=== PATIENT | female | born 1985 | race Two or more races ===

== ENCOUNTER → 2019-09-19 | Outpatient (CLI) | payer MEDICAID ==
--- NOTE | 2019-09-19 12:23 | WOMENS IMAGING REPORT ---
EXAM DESCRIPTION: U/S BREAST UNILAT LIMITED IMAGES COMPLETED DATE/TIME: 09/19/2019 12:14 pm REASON FOR STUDY: N64.89 OTHER SPECIFIED DISORDERS OF BREAST N64.89 OTHER SPECIFIED DISORDERS OF BR EAST COMPARISON: None. TECHNIQUE: Real-time and static grayscale imaging performed of the right breast targeted to the area of clinical/mammographic concern, 3-6 o'clock location. Selected color Doppler images recorded. LIMITATIONS: None. FINDINGS: MASS: No mass identified. Normal glandular tissue. OTHER: No other significant finding. IMPRESSION: No suspicious findings detected by ultrasound. BIRAD: 1 Negative. RECOMMENDATION: RECOMMENDED FOLLOW-UP: Follow-up as clinically indicated. COMMENT: The [employer] (ACR) has developed recommendations for screening MRI of the breasts in certain patient populations, to be used in conjunction with mammography. Breast MRI s urveillance may be appropriate for women with more than 20% lifetime risk of developing breast cancer as determined by genetic testing, significant family history of the disease, or history of mantle r adiation for Hodgkins Disease. ACR Practice Guidelines 2008. TECHNICAL DOCUMENTATION: JOB ID: [id number] 2010 [employer]- All Rights Reserved Reading location - IP/workstation name: [email or web address]
== END ==
LOC: WI 11:14
PROVIDERS: ATTEND Midwife
DX: N64.89 Other specified disorders of breast (principal)
CPT/HCPCS: 76642

== ENCOUNTER 2019-11-16 05:13 | Inpatient (IN) | payer MEDICAID ==
[2019-11-16] MEDS ORDERED: OXYTOCIN 10 UNIT/ML VIAL ONE (05:39)
[2019-11-16] MEDS ORDERED: MISOPROSTOL 0.2 MG TABLET ONE (05:39)
[2019-11-16] MEDS ORDERED: LIDOCAINE 1% INJ-PF (10 MG/ML) 30 ML SDV ONE (05:39)
[2019-11-16] MEDS ORDERED: OXYTOCIN/0.9 % SODIUM CHLORIDE 30 UNIT/500 ML RTUINJ ONE (05:40)
--- NOTE | 2019-11-16 05:51 | Admission Physical ---
Datetime Report Generated by CPN: 11/16/2019 05:51 CURRENT ADMISSION Chief Complaint: Uterine Contractions Admit Impression : Active Labor Admit Plan: Admit to Unit; Initiate Labor Protocol ALLERGIES Medication Allergies: No Known Allergies (11/16/2019) OBSTETRICAL HISTORY EDC: 11/19/2019 00:00 : 9 Para: 8 Livin PHYSICAL EXAM General: Normal HEENT: Normal Neurologic: Normal Thyroid: Normal Heart: Normal Lungs: Normal Breast: Normal Back: Normal Abdomen: Normal Genitourinary Exam: Normal Extremities: Normal DTRs: Normal Pelvic Type: Adequate Vital Signs: Reviewed; Within Normal Limits VAGINAL EXAM Dilatation: 10 Effacement: 100 Station: 2 Contraction Comments: Regular FETUS A EGA: 39.4 Monitoring: External US Presentation: Vertex Admit Comment: @ 39.4 wk EGA in active labor with precipitous delivery vaginally -Admit to LDR -NPO and IVFS -GBS unknown -anticipate -Anticipate INFORMED CONSENT Informed Consent Obtained: Vaginal Delivery; Risks, Benefits and Alternatives Discussed Signature: with User ID: [email or web address] : with User ID: [email or web address]
[2019-11-16] MEDS ORDERED: PROMETHAZINE HCL INJ 25 MG/1 ML VIAL IV PRN ×2 (06:04→14:30)
[2019-11-16] MEDS ORDERED: DIBUCAINE 1% OINTMENT 28 GM TP PRN (06:04)
[2019-11-16] MEDS ORDERED: ACETAMINOPHEN 650 MG SUPP.RECT PR PRN (06:04)
[2019-11-16] MEDS ORDERED: GLYCERIN/WITCH HAZEL LEAF 1 EACH MED..WIPE TP PRN (06:04)
[2019-11-16] MEDS ORDERED: BENZOCAINE/MENTHOL AEROSOL SPRAY 56 ML TOP PRN (06:04)
[2019-11-16] MEDS ORDERED: PROMETHAZINE HCL 25 MG SUPP.RECT PR PRN (06:04)
[2019-11-16] MEDS ORDERED: MAGNESIUM HYDROXIDE SUSP 30 ML UDCUP PO PRN (06:04)
[2019-11-16] MEDS ORDERED: PROMETHAZINE HCL 25 MG TABLET PO PRN (06:04)
[2019-11-16] MEDS ORDERED: DIPH/PERTUSS(ACELL)/TETANUS VAC/PF 0.5 ML SYR (>=10YO) IM PRN ×2 (06:04→14:30)
[2019-11-16] MEDS ORDERED: ZOLPIDEM TARTRATE 5 MG TABLET PO PRN (06:04)
[2019-11-16] MEDS ORDERED: PSEUDOEPHEDRINE HCL 30 MG TABLET PO PRN (06:04)
[2019-11-16] MEDS ORDERED: NA PHOS,M-B/NA PHOS,DI-BA (ADULT) 133 ML ENEMA PR PRN (06:04)
[2019-11-16] MEDS ORDERED: MEASLES,MUMPS&RUBELLA VACC/PF 0.5 ML VIAL SUBCUT PRN ×2 (06:04→14:30)
[2019-11-16] MEDS ORDERED: DIPHENHYDRAMINE HCL 25 MG CAPSULE PO PRN (06:04)
[2019-11-16] MEDS ORDERED: OXYTOCIN/0.9 % SODIUM CHLORIDE 30 UNIT/500 ML RTUINJ IV PRN (06:04)
[2019-11-16 06:07] LABS: ABSOLUTE EOSINOPHILS # (AUTO) 0.1 10^3/uL (0.0-0.6); ABSOLUTE LYMPHOCYTES (AUTO) 2.8 10^3/uL (0.5-4.7); ABSOLUTE MONOCYTES (AUTO) 0.7 10^3/uL (0.1-1.4); ABSOLUTE NEUT (AUTO) 8.5 10^3/uL (1.7-8.2); BASOPHILS % (AUTO) 0.4 % (0-2); EOSINOPHILS % (AUTO) 0.4 % (0-6); HEMATOCRIT 39.3 % (36.0-47.0); HEMOGLOBIN 13.6 g/dL (12.0-15.5); LYMPHOCYTES % (AUTO) 23.3 % (13-45); MEAN CORPUSCULAR HEMOGLOBIN 29.4 pg (27.0-33.4); MEAN CORPUSCULAR HGB CONC 34.7 g/dL (32.0-36.0); MEAN CORPUSCULAR VOLUME 85 fl (80-97); MONOCYTES % (AUTO) 5.8 % (3-13); PLATELET COUNT 250 10^3/uL (150-450); RED BLOOD COUNT 4.64 10^6/uL (3.72-5.28); RED CELL DISTRIBUTION WIDTH 13.7 % (11.5-14.0); SEGMENTED NEUTROPHILS % (AUTO) 70.1 % (42-78); TOTAL CELLS COUNTED % (AUTO) 100 %; WHITE BLOOD COUNT 12.1 10^3/uL (4.0-10.5)
[2019-11-16] MEDS ORDERED: IBUPROFEN 800 MG TABLET ONE (06:33)
[2019-11-16 07:20] LABS: APPEARANCE,URINE CLEAR; BILIRUBIN,URINE NEGATIVE (NEGATIVE); COLOR,URINE YELLOW; GLUCOSE, URINE NEGATIVE (NEGATIVE); KETONES,URINE NEGATIVE (NEGATIVE); LEUKOCYTE ESTERASE,URINE NEGATIVE (NEGATIVE); NITRITE,URINE NEGATIVE (NEGATIVE); PROTEIN,URINE NEGATIVE (NEGATIVE); UROBILINOGEN,URINE NEGATIVE mg/dL (<2.0)
[2019-11-16 07:21] LABS: URINE AMPHETAMINES SCREEN NEGATIVE; URINE BARBITURATES SCREEN NEGATIVE; URINE BENZODIAZEPINES SCREEN NEGATIVE; URINE COCAINE SCREEN NEGATIVE; URINE MARIJUANA (THC) SCREEN NEGATIVE; URINE METHADONE SCREEN NEGATIVE; URINE PHENCYCLIDINE SCREEN NEGATIVE
--- NOTE | 2019-11-16 07:37 | Delivery Summary ---
Del Sum A-C Datetime Report Generated by CPN: 11/16/2019 07:37 DELIVERY PERSONNEL DELIVERY PERSONNEL: [id number] Delivery Doctor:: Zarina Gregory MD Labor and Delivery Nurse:: Landon Braun RNblock setter gypsum Nurse:: Lay Ortiz RN Hazardous Waste Management Specialist/RADIOISOTOPE PRODUCTION OPERATOR: Tjanni Gonzalez, SHIPPING TRACK SUPERVISOR Hazardous Waste Management Specialist/RADIOISOTOPE PRODUCTION OPERATOR: Kelin Perera, ST MATERNAL INFORMATION Delivery Anesthesia: None Medications After Delivery: Pitocin 10 Units IM; Pitocin 30 Units in 500ml NS/D5W Delivery QBL: 0 Maternal Complications: Precipitous Labor (<3hrs) Provider Comments: Called to patients room as she was complete and pushing after arriving on the floor for labor check and going to restroom. She was just checking in and had not been put on the monitor yet. When I arrived in room, baby on Mother's abdomen. Cord doubly clamped and cut. Infant placed to maternal chest. THick, dark meconium noted. Placenta delivered intact. PItocin 10mg IM given as no IV access at this time. Fundus firm. Mother and infant stable. LABOR SUMMARY EDC: 11/19/2019 00:00 No. Babies in Womb: 1 Attempted: No Labor Anesthesia: None LABOR INFORMATION Reason for Induction: Not Applicable Oxytocin: N/A Group B Beta Strep: negative Antibiotics # of Doses: n/a Steroids Given: None Reason Steroids Not Administered: Not Applicable MEMBRANES Amniotic Fluid Color: Heavy Meconium Amniotic Fluid Amount: Large STAGES OF LABOR Stage 3 hr: 0 Stage 3 min: 5 VAGINAL DELIVERY Episiotomy: None Laceration #1: None Laceration Repair: Not Applicable Sponge Count Correct: Yes Sharps Count Correct: Yes CSECTION DELIVERY Primary Indication: Prolonged Latent Phase Secondary Indication: N/A BABY A INFORMATION Infant Delivery Date/Time: 11/16/2019 05:32 Method of Delivery: Vaginal Nurse Controlled Delivery: Yes Born in Route : No : N/A Forceps: N/A Vacuum Extraction: N/A Shoulder Dystocia : No PRESENTATION/POSITION BABY A Presentation: Cephalic Cephalic Presentation: Vertex Vertex Position: Right Occipital Anterior Breech Presentation: N/A PLACENTA INFORMATION BABY A Placenta Delivery Time : 11/16/2019 05:37 Placenta Method of Delivery: Spontaneous Placenta Status: Delivered SCORES BABY A Heart Rate 1 min: >100 bpm Resp Effort 1 min: Good Cry Reflex Irritability 1 min: Cough or Sneeze or Pulls Away Muscle Tone 1 min: Active Motion Color 1 min: Body [place], Extremities Blue SCORE 1 MIN: 9 Heart Rate 5 min: >100 bpm Resp Effort 5 min: Good Cry Reflex Irritability 5 min: Cough or Sneeze or Pulls Away Muscle Tone 5 min: Active Motion Color 5 min: Body [place], Extremities Blue SCORE 5 MIN: 9 INFANT INFORMATION BABY A Gestational Age at Delivery: 39.4 Gestational Status: Full Term- 39- 40.6 Weeks Infant Outcome : Liveborn Condition : Stable Infant Sex: Male IDENTIFICATION BABY A Infant Verification Date/Time: 11/16/2019 06:12 ID Band Number: [id number] Mother's Name Verified: Yes Infant RN Verifying Infant: Raphael Quinn, RN and RRamonita Ortiz, RN WEIGHT/LENGTH BABY A Infant Birthweight (gm): 2480 Weight (lb): 5 Weight (oz): 7 Infant Length (in): 18.50 Length (cm): 46.99 CORD INFORMATION BABY A No. Cord Vessels: 3 Nuchal Cord : Around Neck x1, Loose Cord Blood Taken: Yes-For Eval (Mom's Blood Type - or O+) Suction: None ASSESSMENT BABY A Complications: None Physical Findings at Delivery: Within Normal Limits Infant Respirations: Appears Normal Ship Design Teacher/ALS Called : No Transferred To: Remains with Mother SIGNATURES Signature: with User ID: [email or web address] : with User ID: [email or web address]
--- NOTE | 2019-11-16 07:37 | Birth Certificate Data ---
Cert Data Datetime Report Generated by CPN: 11/16/2019 07:37 CERTIFICATE DATA 48b. Now Livin (11/16/2019 05:27:Krislyn Kade, RN) Mother's Height 50b. Height Inches: 61 (11/16/2019 05:27:QS system process) Mother's Weight 51b. Weight at Delivery (lbs): 231 (11/16/2019 05:27:QS system process) Infections Present/Treated Results this Hospital Visit : Negative (11/16/2019 05:27:Landon Braun RN) Results this Hospital Visit: Negative (11/16/2019 05:27:Landon Braun RN) Results this Hospital Visit: Negative (11/16/2019 05:27:Landon Braun RN) 53e. Hepatitis C: Negative (11/16/2019 05:27:Landon Braun RN) 53h. Mother Tested for HBsAG: Yes (11/16/2019 05:27:Landon Braun RN) 53i. Date Tested: 06/29/2019 00:00 (11/16/2019 05:27:Landon Braun RN) 53j. Test Result: Negative (11/16/2019 05:27:Landon Braun RN) 57a. Induction of Labor: N/A (11/16/2019 05:27:Gabrielle Quinn RN) 57c. Non-Vertex Presentation A: Vertex (11/16/2019 05:27:Gabrielle Quinn RN) 57d. Steroids - Lung Mat: None (11/16/2019 05:27:Gabrielle Quinn RN) 57d. Steroids - Lung Mat: Not Applicable (11/16/2019 05:27:Gabrielle Quinn RN) 57g. Moderate/Heavy Meconium: Heavy Meconium (11/16/2019 05:27:Zarina Gregory MD) 57h. Intolerance of Labor: Prolonged Latent Phase (11/16/2019 05:27:Zarina Gregory MD) : N/A (11/16/2019 05:27:Gabrielle Quinn RN) 57i. Epidural/Spinal Anesthesia: None (11/16/2019 05:27:Gabrielle Quinn RN) Method of Delivery 58a. Forceps - Unsuccessful A: N/A (11/16/2019 05:27:Gabrielle Quinn RN) 58b. Vacuum - Unsuccessful A: N/A (11/16/2019 05:27:Gabrielle Quinn RN) 58c. Presentation at 58c. Presentation at - A : Vertex (11/16/2019 05:27:Gabrielle Quinn RN) 58c. Presentation at - A : N/A (11/16/2019 05:27:Gabrielle Quinn RN) 58c. Presentation at - A : Cephalic (11/16/2019 05:27:Gabrielle Quinn RN) Final Route and Method of Del 58d. Baby A Route/Delivery: Vaginal (11/16/2019 05:27:Gabrielle Quinn RN) 58e. Trial of Labor Attempted: No (11/16/2019 05:27:Gabrielle Quinn RN) 58e. Trial of Labor Attempted A: N/A (11/16/2019 05:27:Gabrielle Quinn RN) Maternal Morbidity 59b. 3rd or 4th Degree Lacs: None (11/16/2019 05:27:Zarina Gregory MD) 59b. 3rd or 4th Degree Lacs: N/A (11/16/2019 05:27:Gabrielle Quinn RN) Birthweight Baby A: 2480 (11/16/2019 05:27:Marlys Melgoza RN) 60a. Pounds : 5 (11/16/2019 05:27:QS system process) 60b. Ounces: 7 (11/16/2019 05:27:QS system process) 61. GA at Delivery Baby A: 39.4 (11/16/2019 05:27:Gabrielle Quinn RN) : Full Term- 39- 40.6 Weeks (11/16/2019 05:27:QS system process) 62a. 5 Minute Baby A: 9 (11/16/2019 05:27:QS system process)
[2019-11-16] MEDS: FERROUS SULFATE 325 MG TABLET PO SCH ×2 (10:58→17:43)
[2019-11-16] MEDS: DOCUSATE SODIUM 100 MG CAPSULE PO SCH ×2 (10:58→17:43)
[2019-11-16] MEDS: PRENATAL VITAMIN W DHA CAPSULE PO SCH (10:58)
[2019-11-16] MEDS: SENNOSIDES/DOCUSATE 8.6-50 MG 1 EACH TABLET PO SCH (10:58)
[2019-11-16] MEDS: FAMOTIDINE 20 MG TABLET PO SCH ×2 (10:58→21:23)
[2019-11-16] MEDS: IBUPROFEN 800 MG TABLET PO SCH ×3 (11:05→21:21)
[2019-11-16] MEDS: ACETAMINOPHEN WITH CODEINE #3 TABLET PO PRN (16:10)
[2019-11-17] MEDS: IBUPROFEN 800 MG TABLET PO SCH ×3 (05:45→22:32)
[2019-11-17 08:19] LABS: HEMATOCRIT 36.6 % (36.0-47.0); HEMOGLOBIN 12.4 g/dL (12.0-15.5); MEAN CORPUSCULAR HEMOGLOBIN 29.1 pg (27.0-33.4); MEAN CORPUSCULAR HGB CONC 33.9 g/dL (32.0-36.0); MEAN CORPUSCULAR VOLUME 86 fl (80-97); PLATELET COUNT 231 10^3/uL (150-450); RED BLOOD COUNT 4.26 10^6/uL (3.72-5.28); WHITE BLOOD COUNT 10.2 10^3/uL (4.0-10.5)
--- NOTE | 2019-11-17 10:00 | PDOC PROGRESS REPORT ---
Subjective-OB Progress Note for:: 11/17/19 Subjective: Doing well, no c/o, hsb at BS, has some mild drooping of left eyelid and mouth due to hx of [place] Palsy, , voiding, home in AM Physical Exam (OB) Vital Signs: Temp Pulse Resp BP Pulse Ox 97.5 F 50 L 16 103/59 L 99 11/17/19 07:40 11/17/19 07:40 11/17/19 07:40 11/17/19 07:40 11/17/19 07:40 Intake & Output 11/16/19 11/17/19 11/18/19 06:59 06:59 06:59 Intake Total 840 Balance 840 Weight 105.4 kg - PIH/Pre-Eclampsia DTR's: 1 + Clonus: Negative Headache: Absent Epigastric Pain: Yes Visual Changes: No - Maternal Morbidity 59. Maternal Morbidity (serious complications experinced by the mother associated with labor and delivery: None of the above - Lochia Lochia Amount: Scant < 10 ml Lochia Color: Rubra/Red - Abdomen Description: Firm, Soft Hernia Present: No Fundal Description: Firm, Midline Fundal Height: u/u - u/2 Objective-Diagnostic Laboratory: 11/17/19 07:50 11/17/19 07:50 WBC 10.2 RBC 4.26 Hgb 12.4 Hct 36.6 MCV 86 MCH 29.1 MCHC 33.9 RDW 14.0 Plt Count 231 Assessment and Plan(PN) - Assessment and Plan (1) Active labor at term Is this a current diagnosis for this admission?: Yes (2) Vaginal delivery Is this a current diagnosis for this admission?: Yes - Time Spent with Patient Time with patient: Less than 15 minutes Medications reviewed and adjusted accordingly: Yes - Disposition Anticipated Discharge Disposition: Home, Self Care Anticipated Discharge Timeframe: within 24 hours
[2019-11-17] MEDS: FAMOTIDINE 20 MG TABLET PO SCH ×2 (10:35→22:33)
[2019-11-17] MEDS: ACETAMINOPHEN WITH CODEINE #3 TABLET PO PRN ×3 (10:35→20:46)
[2019-11-17] MEDS: DOCUSATE SODIUM 100 MG CAPSULE PO SCH ×2 (10:35→18:30)
[2019-11-17] MEDS: SENNOSIDES/DOCUSATE 8.6-50 MG 1 EACH TABLET PO SCH (10:35)
[2019-11-17] MEDS: FERROUS SULFATE 325 MG TABLET PO SCH ×2 (10:35→18:30)
[2019-11-17] MEDS: PRENATAL VITAMIN W DHA CAPSULE PO SCH (10:35)
[2019-11-18] MEDS: IBUPROFEN 800 MG TABLET PO SCH ×2 (06:20→13:09)
[2019-11-18] MEDS: FAMOTIDINE 20 MG TABLET PO SCH (09:36)
[2019-11-18] MEDS: PRENATAL VITAMIN W DHA CAPSULE PO SCH (09:37)
[2019-11-18] MEDS: FERROUS SULFATE 325 MG TABLET PO SCH (09:37)
[2019-11-18] MEDS: SENNOSIDES/DOCUSATE 8.6-50 MG 1 EACH TABLET PO SCH (09:37)
[2019-11-18] MEDS: DOCUSATE SODIUM 100 MG CAPSULE PO SCH (09:37)
--- NOTE | 2019-11-18 10:15 | PDOC PROGRESS REPORT ---
Subjective-OB Progress Note for:: 11/18/19 Subjective: Doing well, ready to go home, no c/o, hsb at BS Physical Exam (OB) Vital Signs: Temp Pulse Resp BP Pulse Ox 97.6 F 58 L 16 105/65 99 11/18/19 07:12 11/18/19 07:12 11/18/19 07:12 11/18/19 07:12 11/18/19 07:12 Intake & Output 11/17/19 11/18/19 11/19/19 06:59 06:59 06:59 Intake Total 840 1740 Balance 840 1740 - PIH/Pre-Eclampsia DTR's: 1 + Clonus: Negative Headache: Absent Epigastric Pain: No Visual Changes: No - Maternal Morbidity 59. Maternal Morbidity (serious complications experinced by the mother associated with labor and delivery: None of the above - Lochia Lochia Amount: Small 10-25 ml Lochia Color: Rubra/Red - Abdomen Description: Tender, Soft, Round Hernia Present: No Fundal Description: Firm, Midline Fundal Height: u/u - u/2 Objective-Diagnostic Laboratory: 11/17/19 07:50 Assessment and Plan(PN) - Assessment and Plan (1) Active labor at term Is this a current diagnosis for this admission?: Yes (2) Vaginal delivery Is this a current diagnosis for this admission?: Yes - Time Spent with Patient Time with patient: Less than 15 minutes Medications reviewed and adjusted accordingly: Yes - Disposition Anticipated Discharge Disposition: Home, Self Care Anticipated Discharge Timeframe: within 24 hours
--- NOTE | 2019-11-18 10:20 | PDOC DISCHARGE SUMMARY ---
Impression - Admit/DC Date/PCP Admission Date/Primary Care Provider: 11/16/19 05:39 JASBIR ESPINOZA Discharge Date: 11/18/19 - Discharge Diagnosis (1) Active labor at term Is this a current diagnosis for this admission?: Yes (2) Vaginal delivery Is this a current diagnosis for this admission?: Yes - Additional Information Resuscitation Status: Full Code Discharge Diet: As Tolerated, Regular Discharge Activity: Activity As Tolerated, Pelvic Rest Referrals: JASBIR ESPINOZA CNM [Primary Care Provider] - ([facility] 4 weeks) Home Medications: Vit/Dha [ Multi + Dha Capsule] 1 cap PO DAILY capsule 11/18/19 HPI Gestational Age: 39.4 Reason(s) for Admission: Onset of Labor Procedures: Ultrasound Intrapartum Procedure(s): Spontaneous Vaginal Delivery Hospital Course Hospital Course: routine 59. Maternal Morbidity (serious complications experinced by the mother associated with labor and delivery: None of the above Results Laboratory Results: WBC 10.2 10^3/uL (4.0-10.5) 11/17/19 07:50 RBC 4.26 10^6/uL (3.72-5.28) 11/17/19 07:50 Hgb 12.4 g/dL (12.0-15.5) 11/17/19 07:50 Hct 36.6 % (36.0-47.0) 11/17/19 07:50 MCV 86 fl (80-97) 11/17/19 07:50 MCH 29.1 pg (27.0-33.4) 11/17/19 07:50 MCHC 33.9 g/dL (32.0-36.0) 11/17/19 07:50 RDW 14.0 % (11.5-14.0) 11/17/19 07:50 Plt Count 231 10^3/uL (150-450) 11/17/19 07:50 Lymph % (Auto) 23.3 % (13-45) 11/16/19 05:53 [place] % (Auto) 5.8 % (3-13) 11/16/19 05:53 Eos % (Auto) 0.4 % (0-6) 11/16/19 05:53 Baso % (Auto) 0.4 % (0-2) 11/16/19 05:53 Absolute Neuts (auto) 8.5 10^3/uL (1.7-8.2) H 11/16/19 05:53 Absolute Lymphs (auto) 2.8 10^3/uL (0.5-4.7) 11/16/19 05:53 Absolute Monos (auto) 0.7 10^3/uL (0.1-1.4) 11/16/19 05:53 Absolute Eos (auto) 0.1 10^3/uL (0.0-0.6) 11/16/19 05:53 Absolute Basos (auto) 0.0 10^3/uL (0.0-0.2) 11/16/19 05:53 Seg Neutrophils % 70.1 % (42-78) 11/16/19 05:53 Urine Color YELLOW 11/16/19 05:20 Urine Appearance CLEAR 11/16/19 05:20 Urine pH 5.0 (5.0-9.0) 11/16/19 05:20 Ur Specific [place] 1.020 11/16/19 05:20 Urine Protein NEGATIVE mg/dL (NEGATIVE) 11/16/19 05:20 Urine Glucose (UA) NEGATIVE mg/dL (NEGATIVE) 11/16/19 05:20 Urine Ketones NEGATIVE mg/dL (NEGATIVE) 11/16/19 05:20 Urine Blood MODERATE (NEGATIVE) H 11/16/19 05:20 Urine Nitrite NEGATIVE (NEGATIVE) 11/16/19 05:20 Urine Bilirubin NEGATIVE (NEGATIVE) 11/16/19 05:20 Urine Urobilinogen NEGATIVE mg/dL (<2.0) 11/16/19 05:20 Ur Leukocyte Esterase NEGATIVE (NEGATIVE) 11/16/19 05:20 Urine Ascorbic Acid NEGATIVE (NEGATIVE) 11/16/19 05:20 Urine Opiates Screen NEGATIVE 11/16/19 05:20 Urine Methadone Screen NEGATIVE 11/16/19 05:20 Ur Barbiturates Screen NEGATIVE 11/16/19 05:20 Ur Phencyclidine Scrn NEGATIVE 11/16/19 05:20 Ur Amphetamines Screen NEGATIVE 11/16/19 05:20 U Benzodiazepines Scrn NEGATIVE 11/16/19 05:20 Urine Cocaine Screen NEGATIVE 11/16/19 05:20 U Marijuana (THC) Screen NEGATIVE 11/16/19 05:20 RPR NONREACTIVE (NONREACTIVE) 11/16/19 05:53 Blood Type O POSITIVE 11/16/19 05:53 Antibody Screen NEGATIVE 11/16/19 05:53 Plan Health Concerns: routine Plan of Treatment: discharge home, rev S&S to report Goals: routine Time Spent: Less than 30 Minutes
[2019-11-18] MEDS: ACETAMINOPHEN WITH CODEINE #3 TABLET PO PRN (10:46)
[2019-11-18 12:21] VITALS: BP 109/55
== END 2019-11-18 15:20 | disposition home or self-care (01) | DRG 806 ==
LOC: LC 05:13 → LR 05:39 → 2S 07:49
PROVIDERS: ADMIT Obstetrics & Gynecology; ATTEND Obstetrics & Gynecology
PROC: 10E0XZZ Delivery of Products of Conception, External Approach (ICD-10-PCS; principal; 2019-11-16)
DX: O62.3 Precipitate labor (principal); O63.9 Long labor, unspecified; Z37.0 Single live birth; O99.354 Diseases of the nervous system complicating childbirth; G51.0 Bell's palsy; O69.81X0 Labor and delivery complicated by cord around neck, without compression, not applicable or unspecified; Z3A.39 39 weeks gestation of pregnancy
CPT/HCPCS: 36415; 80307; 81005; 85025; 85027; 86592; 86850; 86900; 86901; J2590; J3490

== ENCOUNTER 2020-01-29 10:07 | Day surgery (SDC) | payer MEDICAID ==
[2020-01-23 11:23] LABS: HEMATOCRIT 37.8 % (36.0-47.0); HEMOGLOBIN 13.1 g/dL (12.0-15.5); MEAN CORPUSCULAR HEMOGLOBIN 29.9 pg (27.0-33.4); MEAN CORPUSCULAR HGB CONC 34.5 g/dL (32.0-36.0); MEAN CORPUSCULAR VOLUME 87 fl (80-97); PLATELET COUNT 290 10^3/uL (150-450); RED BLOOD COUNT 4.36 10^6/uL (3.72-5.28); RED CELL DISTRIBUTION WIDTH 13.2 % (11.5-14.0); WHITE BLOOD COUNT 7.8 10^3/uL (4.0-10.5)
[2020-01-23 11:30] LABS: APPEARANCE,URINE CLEAR; BILIRUBIN,URINE NEGATIVE (NEGATIVE); COLOR,URINE STRAW; GLUCOSE, URINE NEGATIVE (NEGATIVE); KETONES,URINE NEGATIVE (NEGATIVE); LEUKOCYTE ESTERASE,URINE NEGATIVE (NEGATIVE); NITRITE,URINE NEGATIVE (NEGATIVE); PROTEIN,URINE NEGATIVE (NEGATIVE); URINE SPECIFIC GRAVITY 1.009; UROBILINOGEN,URINE NEGATIVE mg/dL (<2.0)
[2020-01-29] MEDS ORDERED: ONDANSETRON HCL INJ/PF 4 MG/2 ML SDV ONE (12:52)
[2020-01-29] MEDS ORDERED: DEXAMETHASONE SOD PHOSPHATE INJ 4 MG/1 ML VIAL ONE (12:52)
[2020-01-29] MEDS ORDERED: FENTANYL CITRATE INJ/PF 100 MCG/2 ML AMPUL ONE (12:52)
[2020-01-29] MEDS ORDERED: MIDAZOLAM 2 MG/2 ML INJ ONE (12:52)
[2020-01-29] MEDS ORDERED: PROPOFOL INJ 200 MG/20 ML VIAL IV ONE (12:53)
[2020-01-29] MEDS ORDERED: PROMETHAZINE HCL INJ 25 MG/1 ML VIAL IV PRN ×2 (13:38)
[2020-01-29] MEDS ORDERED: OXYCODONE-ACETAMINOPHEN 5-325 MG TABLET PO PRN ×2 (13:38)
[2020-01-29] MEDS ORDERED: MORPHINE SULFATE 10 MG/ML INJ IV PRN (13:38)
[2020-01-29] MEDS ORDERED: MEPERIDINE HCL/PF INJ 25 MG/1 ML DISP.SYRIN IV PRN (13:38)
[2020-01-29] MEDS ORDERED: FENTANYL CITRATE INJ/PF 100 MCG/2 ML AMPUL IV PRN ×3 (13:38)
[2020-01-29] MEDS ORDERED: DIPHENHYDRAMINE HCL 50 MG/ML VIAL IV PRN (13:38)
--- NOTE | 2020-01-29 14:13 | Operative Report ---
Operative Report DATE OF SURGERY: 01/29/20 PREOPERATIVE DIAGNOSIS: Unwanted fertility POSTOPERATIVE DIAGNOSIS: Unwanted fertility OPERATION: Laparoscopic bilateral tubal ligation with Filshie clips SURGEON: AYANNA STERN ANESTHESIA: GA TISSUE REMOVED OR ALTERED: None COMPLICATIONS: none ESTIMATED BLOOD LOSS: 5cc INTRAOPERATIVE FINDINGS: Normal appearing uterus, bilateral fallopian tubes and ovaries. Adhesion between anterior abdominal wall and omentum PROCEDURE: IV fluids: per anesthesia record Urinary output: Voided prior to OR Findings: Normal-appearing uterus bilateral fallopian tubes and ovaries. Adhesion between omentum and anterior abdominal wall. Liver edge appears normal Position: To recovery room in stable condition Description of procedure: The patient was taken to the operating room and general anesthesia was administered and found to be adequate. She was then placed on the OR table in the dorsal lithotomy position. The Patient was prepped and draped in usual sterile fashion. Timeout was taken. A bivalve speculum was used to visualize the cervix. The anterior lip of the cervix was then grasped with a single tooth tenaculum and an acorn uterine manipulator was placed. At this time attention was turned of the patient's abdomen and sterile gloves were donned a 1 cm infra umbilical incision was made vertically and carried down to the level of the rectus fascia. The rectus fascia was then grasped with 2 Janeth clamps elevated and incised with Boyd scissors. A digital sweep was done noting entry into the peritoneum. The fascia was tagged bilaterally with 0- vicryl suture. A #10 Maria trocar was positioned and CO2 gas was used to insufflate the abdomen to a quantity sufficient for the laparoscopy. The laparoscope was inserted and a survey was done of the abdomen pictures were obtained. Findings noted normal anatomy. The right fallopian tube was identified and traced to its fimbriated end. The right ovary was noted to be normal. A Filshie clip was then placed approximately 1 to 2 cm from the uterine cornu across the right fallopian tube. The Filshie clip was noted to surround the tube in its entirety good blanching and hemostasis was noted. The left fallopian tube was then traced to its fibriated end and a Filshie clip was placed 1 to 2 cm from the uterine cornu on the left fallopian tube. The Filshie clip was noted to surround the tube in its entirety with good blanching and hemostasis was noted. Pictures were obtained. At this point the procedure was terminated. All instrument removed from the patient's abdomen and CO2 gas was allowed to escape. The infraumbilical port was removed. The fascia was closed with 0 Vicryl suture. The skin was closed with 3-0 Monocryl in a series of interrupted stitiches. The skin incision was then clean dried and Dermabond was applied over the skin incision. All instrument sponge and needle counts were correct x3 for the procedure the patient tolerated the procedure well. She will proceed to recovery room in stable condition
--- NOTE | 2020-01-29 14:14 | Discharge Summary ---
Discharge Summary (SDC) - Discharge Final Diagnosis: Unwanted fertility Date of Surgery: 01/29/20 Discharge Date: 01/29/20 Condition: Stable Treatment or Instructions: No heavy lifting for 6 weeks. Resume regular diet as tolerated. Prescriptions: Ibuprofen [Motrin 800 mg Tablet] 800 mg PO Q8H PRN #30 tab PRN Reason: Hydrocodone/Acetaminophen [[place] 5-325 mg Tablet] 1 tab PO Q6 PRN 5 Days #20 tablet PRN Reason: For Pain Scale 4-5 Referrals: AYANNA STERN MD [ACTIVE PROVISIONAL STAFF] - Respiratory Treatments at Home: Deep Breathing/Coughing Discharge Activity: Activity As Tolerated Home Care Assistance: None Needed Report the Following to Your Physician Immediately: Shortness of Breath, Vomiting, Increase in Pain, Fever over 101 Degrees, Drainage-Foul Smelling, IV Site Infection Signs
[2020-01-29] MEDS: FENTANYL CITRATE INJ/PF 100 MCG/2 ML AMPUL ONE ×2 (14:20→14:25)
[2020-01-29] MEDS ORDERED: OXYCODONE-ACETAMINOPHEN 5-325 MG TABLET ONE (14:52)
[2020-01-29] MEDS ORDERED: KETOROLAC TROMETHAMINE INJ/PF 30 MG/1 ML SDV ONE (15:07)
[2020-01-29] MEDS ORDERED: ACETAMINOPHEN 1,000 MG/100 ML RTUPB IV ONE (15:07)
[2020-01-29 16:32] VITALS: BP 115/77
[2020-01-29] MEDS ORDERED: IBUPROFEN 800 MG TABLET ONE (16:36)
== END 2020-01-29 16:45 | disposition home or self-care (01) ==
LOC: OROUT 10:07
PROVIDERS: ATTEND Obstetrics & Gynecology
DX: Z30.2 Encounter for sterilization (principal); E66.9 Obesity, unspecified; Z20.828 Contact with and (suspected) exposure to other viral communicable diseases; Z90.49 Acquired absence of other specified parts of digestive tract
CPT/HCPCS: 36415; 85027; 87635; 81005; 81025; 00851; 58671; J2250; J3490; J1100; J3010; J1885; J2405; J2704; J0131; C9803; 851